=== PATIENT | male | born 2000 | race Caucasian/White ===

== ENCOUNTER → 2018-12-04 | Outpatient (CLI) | payer SELFPAY | LOC: COL.RAD 12:42 | DX: K43.9 Ventral hernia without obstruction or gangrene (principal) ==

== ENCOUNTER → 2019-07-19 | Outpatient (CLI) | payer BC | LOC: COL.RAD 08:07 | DX: E80.7 Disorder of bilirubin metabolism, unspecified (principal); K76.0 Fatty (change of) liver, not elsewhere classified ==